=== PATIENT | female | born 1985 | race Caucasian/White ===

== ENCOUNTER 2017-08-11 14:48 | Emergency (ER) | payer MEDICAID, MEDICARE ==
[~2017-08-11] VITALS: Ht 152.4 cm; Wt 55.0 kg
[~2017-08-11 14:48] MED LIST: ERYT.5%O OS; LAMO100 PO; SULF1TAB47 PO; VENL75TA91 PO; XANA2TAB2 PO
[2017-08-11 14:49] VITALS: BP 128/76; PULSE 91; RESP 12; TEMP 98; O2SAT 99
--- NOTE | 2017-08-11 15:49 | PD ---
HPI Chief Complaint: Cold / Flu Symptoms Time Seen by Provider: 15:49 Travel History International Travel<30 days: No Contact w/Intl Traveler<30days: No Traveled to known affect area: No History of Present Illness HPI 32-year-old female presents to emergency Department with complaint of nasal congestion, right ear pain, cough, chest tightness, shortness of breath 3 days. Denies fever, vomiting. Reports sore throat. Denies unusual drooling, lump in throat, difficulty swallowing. Reports painful swallowing. Reports wheezing. Reports tobacco use. Denies history of asthma. Has been using over- the-counter cough and cold medications for symptom management. Symptoms are mild in severity. No known relieving or aggravating factors. Allergies to risperidone. Has no other medical complaints. No other modifying factors or associated signs and symptoms. PFSH Past Medical History Bipolar Disorder: Yes Anxiety: Yes Diminished Hearing: No Thyroid Disease: Yes (GRAVES DISEASE) Tetanus Vaccination: < 5 Years Influenza Vaccination: No ?: Not LMP: 08/07/17 : 3 Para: 0 Miscarriage: 3 Past Surgical History Surgical History: No Previous Surgery Social History Alcohol Use: No Tobacco Use: Yes (1/2 PACK A DAY FOR 14 YEARS) Substance Use: No Allergies-Medications (Allergen,Severity, Reaction): Coded Allergies: risperidone (Unverified Allergy, Unknown, HAS GRAVES DISEASE, 08/11/17) Reported Meds & Prescriptions Reported Meds & Active Scripts Active Tessalon Perles (Benzonatate) 100 Mg Cap 100 Mg PO TID PRN Deltasone (Prednisone) 20 Mg Tab 40 Mg PO DAILY 4 Days start 08/12/2017 Ventolin Hfa 18 GM Inh (Albuterol Sulfate) 90 Mcg/Act Aer 2 Puff INH Q4-6H PRN Azithromycin 500 Mg Tab 500 Mg PO DAILY Review of Systems Except as stated in HPI: all other systems reviewed are Neg Physical Exam Narrative GENERAL: Well-nourished, well-developed female patient, in no acute distress; afebrile, nontoxic-appearing SKIN: Warm and dry. HEAD: Atraumatic. Normocephalic. EYES: Pupils equal and round. No scleral icterus. No injection or drainage. ENT: Mucosa pink and moist. No erythema or exudates. No uvular edema. No uvular , palatal, or tonsillar deviation. Airway patent. Nares without nasal blood, purulent drainage or septal hematoma. EARS: Bilateral pinnae and external canals appear within normal limits. Right tympanic membrane with erythema, dullness, loss of landmarks. Left tympanic membranes without erythema, dullness or perforation. NECK: Trachea midline. No lymphadenopathy. CARDIOVASCULAR: Regular rate and rhythm. No murmur appreciated. RESPIRATORY: No accessory muscle use. Lungs with mild Wheezing throughout to auscultation. Breath sounds equal bilaterally. No retractions or tachypnea. No Audible wheezing noted. GASTROINTESTINAL: Abdomen soft, non-tender, nondistended. Hepatic and splenic margins not palpable. Bowel sounds are active 4 quadrants. MUSCULOSKELETAL: No obvious deformities. No clubbing. No cyanosis. No edema. NEUROLOGICAL: Awake and alert. Oriented 3. No obvious cranial nerve deficits. Motor grossly within normal limits. Normal speech. Moves all extremities. 5/5 strength to all extremities. PSYCHIATRIC: Appropriate mood and affect; insight and judgment normal. Data Data Last Documented VS Vital Signs Date Time Temp Pulse Resp B/P (MAP) Pulse Ox O2 Delivery O2 Flow Rate FiO2 08/11/17 15:08 Room Air 08/11/17 14:49 98.0 91 12 128/76 (93) 99 Orders Orders Prednisone (Deltasone) (08/11/17 16:00) Albuterol Neb (Albuterol Neb) (08/11/17 16:00) MDM Medical Decision Making Medical Screen Exam Complete: Yes Emergency Medical Condition: Yes Medical Record Reviewed: Yes Differential Diagnosis Upper respiratory infection, otitis media, otitis externa, bronchitis, pneumonia Narrative Course 32-year-old female physical exam consistent with right otitis media and bronchitis. Lungs with mild wheezing throughout. Patient is in no acute distress and without retractions or tachypnea. Oxygen saturation is 99% on room air. Albuterol nebulizer and Deltasone administered in the ER. Azithromycin, Ventolin inhaler, Deltasone, Tessalon Perls prescribed for home. Instructed patient to follow up with primary care provider. Patient verbalizes understanding and agreement with treatment plan. Patient is medically cleared and stable for discharge. Discussed reasons to return to the emergency department. Patient agrees with treatment plan. The patients vital signs are stable and the patient is stable for outpatient follow-up and treatment. Patient discharged home, stable and in no acute distress. Diagnosis Primary Impression: Bronchitis Additional Impression: Right otitis media Qualified Codes: H66.91 - Otitis media, unspecified, right ear Referrals: Primary Care Physician Patient Instructions: Acute Bronchitis (ED), General Instructions, Serous Otitis Media (ED) Departure Forms: Tests/Procedures, Work Release Enter return to work date: Aug 12, 2017 Additional Instructions: Use Albuterol inhaler as prescribed Take oral steroids as prescribed and complete full course Use Tessalon Perles as prescribed to decrease coughing spasms [id number] decongestants or antihistamines as directed and as needed for symptom management Your cough can last 4-6 weeks Drink plenty of fluids to prevent dehydration Use hot air humidifier to decrease cough exacerbation Turn off ceiling fans and sleep with head of bed elevated Avoid triggers such as second hand smoke, dust, known allergens Follow-up with your primary care provider Return to the emergency department immediately with worsening of symptoms Med/Other Pt SpecificInfo: Prescription(s) given Scripts Benzonatate (Tessalon Perles) 100 Mg Cap 100 MG PO TID Y for COUGH, #10 CAP 0 Refills Prov: Mary Alexander 08/11/17 Prednisone (Deltasone) 20 Mg Tab 40 MG PO DAILY for 4 Days, #8 TAB 0 Refills start 08/12/2017 Prov: Mary AlexanderP 08/11/17 Albuterol 18 GM Inh (Ventolin Hfa 18 GM Inh) 90 Mcg/Act Aer 2 PUFF INH Q4-6H Y for SOB/WHEEZING, #1 INHALER 0 Refills Prov: Mary AlexanderP 08/11/17 Azithromycin (Azithromycin) 500 Mg Tab 500 MG PO DAILY for Infection, #5 TAB 0 Refills Prov: Mary Alexander 08/11/17 Disposition: 01 DISCHARGE HOME Condition: Stable Mary Alexander Aug 11, 2017 15:49
[2017-08-11] MEDS ORDERED: AZIT500T2 PO (15:52)
[2017-08-11] MEDS ORDERED: BENZ100 PO (15:52)
[2017-08-11] MEDS ORDERED: PRED-503 PO (15:52)
[2017-08-11] MEDS ORDERED: VENTAER INH (15:52)
[2017-08-11] MEDS ORDERED: predniSONE 20 MG TAB PO ONE (16:00)
[2017-08-11] MEDS ORDERED: RESP: ALBUTEROL 2.5 MG/3 ML NEB (SCH) INH ONE (16:00)
== END 2017-08-11 16:17 | disposition home or self-care (01) ==
LOC: NEPK 14:48
DX: J40 Bronchitis, not specified as acute or chronic (principal); H66.91 Otitis media, unspecified, right ear; R07.89 Other chest pain; F31.9 Bipolar disorder, unspecified; F41.9 Anxiety disorder, unspecified; E05.00 Thyrotoxicosis with diffuse goiter without thyrotoxic crisis or storm; Z72.0 Tobacco use; Z79.899 Other long term (current) drug therapy; Z88.8 Allergy status to other drugs, medicaments and biological substances
CPT/HCPCS: 94664; 99284; J7512; J7613

== ENCOUNTER 2017-11-16 19:36 | Emergency (ER) | payer SELFPAY ==
[~2017-11-16] VITALS: Ht 152.4 cm; Wt 50.0 kg
[~2017-11-16 19:36] MED LIST changes: +AZIT500T2 PO; +BENZ100 PO; -ERYT.5%O OS; -LAMO100 PO; +PRED-503 PO; -SULF1TAB47 PO; -VENL75TA91 PO; +VENTAER INH; -XANA2TAB2 PO
[2017-11-16 19:40] VITALS: BP 161/102; PULSE 82; RESP 16; TEMP 98.2; O2SAT 99
[2017-11-16 20:18] VITALS: BP 128/93
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
== END 2017-11-16 22:08 | disposition home or self-care (01) ==
LOC: NEPD 19:36
DX: S06.0X0A Concussion without loss of consciousness, initial encounter (principal); Y04.0XXA Assault by unarmed brawl or fight, initial encounter; R56.9 Unspecified convulsions; F31.9 Bipolar disorder, unspecified; F43.10 Post-traumatic stress disorder, unspecified; E05.00 Thyrotoxicosis with diffuse goiter without thyrotoxic crisis or storm; F41.9 Anxiety disorder, unspecified; F17.200 Nicotine dependence, unspecified, uncomplicated; F12.90 Cannabis use, unspecified, uncomplicated
CPT/HCPCS: 70450; 84703; 99284